=== PATIENT | female | born 1975 | race Two or more races ===

== ENCOUNTER 2017-11-05 17:30 | Outpatient (AMBR) | payer MEDICAID, SELFPAY ==
--- NOTE | 2017-11-03 19:13 | PT.ODAYNRPT ---
PT Outpatient Daily Note Date of Service: November 03, 2017 OP Daily Note Visit Reasons: knee pain Outpatient Physical Therapy Treatment Date: 11/03/17 Subjective: Ssx are unchanged from time of evaluation. 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
--- NOTE | 2017-11-05 18:25 | PT.ODAYNRPT ---
PT Outpatient Daily Note Date of Service: November 05, 2017 OP Daily Note Visit Reasons: knee pain Outpatient Physical Therapy Treatment Date: 11/05/17 Subjective: Ssx are unchanged from time of evaluation. 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
== END 2017-11-05 17:46 | disposition home or self-care (01) ==
PROVIDERS: PCP Family Medicine; Referring Provider Family Medicine; Visit Provider Family Medicine
DX: I10 Essential (primary) hypertension (principal)
CPT/HCPCS: 97110

== ENCOUNTER 2017-11-12 17:28 | Outpatient (AMBR) | payer MEDICAID, SELFPAY ==
--- NOTE | 2017-11-12 18:21 | PT.ODAYNRPT ---
PT Outpatient Daily Note Date of Service: November 12, 2017 OP Daily Note Visit Reasons: pain Outpatient Physical Therapy Treatment Date: 11/12/17 Subjective: Temporary relief from therapy visits. She is on her feet at work for most of the day Objective: See F/S for therex MT: STM to ITB and patella borders x7' with Graston Assessment: Good response to exercise and manual therapy to reduce B knee pain. Ssx return probably irritated by work duties. Plan: Continue per POC Length of Time (minutes) of Treatment: 30 Minutes Office Procedures PT Procedures PT Date of Service: 11/12/17 Therapeutic Exercise 30 minutes: Yes
== END 2017-12-07 23:59 | disposition home or self-care (01) ==
PROVIDERS: PCP Family Medicine; Referring Provider Family Medicine; Visit Provider Family Medicine
DX: I10 Essential (primary) hypertension (principal)
CPT/HCPCS: 97110

== ENCOUNTER 2018-05-21 14:50 | Outpatient (AMBR) | payer MEDICAID, SELFPAY ==
--- NOTE | 2018-05-21 15:23 | PT.OIERPT ---
PT OP Initial Eval Patient Information Pediatric or Adult Patient: Adult PT >13 Visit Reasons: knee pain Medical Diagnosis: bilateral knee OA Treatment Dx #1: bilateral knee pain Start of Care: 05/21/18 Date of Onset: 04/24/2018 Initial Assessment Subjective 42 y/o female who was referred to PT due to bilateral knee pain. Patient was complaining of bilateral knee pain L knee > R knee pain. Patient works in the [employer] house of [employer] and she is able to sit and stand up as needed. She usually will carry ~3-5 gallon of [place]. Patient states it hurts her when she is walking and cannot stand up for longer period of time or if she is doing sit to stand. Objective (+) Crepitus on Bilateral knee during flexion and extension PS on L knee 8/10 and R knee 5/10 L quads 4/5 R quads 4/5 TUG test 12.56secs gait Assessment: Patient demonstrates wnl toe clearance. (-) antalgic gait noted. Visual assessment: Bilateral anterior knee mild edema Assessment Patient will benefit for Physical therapy for strengthening ex on BLE with modalities to manage the pain. Patient were advised that we will attempt 5-10 treatment session and if there are no significant gains we will refer her back to her PCP. Patient was also complaining of back pain. Patient were advised that if the back persist to let her PCP know and PCP will decide if she will get a refferal for Physical therapy. Short Term and Ostomy Nurse Goals 1. Increase ms strength on B quads to 5/5 to be able to do STS without difficulty. 2. To decrease pain on BLE to 2/10 to be able to do her ADL's without limitations. Treatment Plan Thera ex Manual tx Estim Frequency and Duration 2x/wk x 6 weeks Certification Dates: 05/21/2018 to 08/21/2018
--- NOTE | 2018-05-21 15:26 | PTNOTE_ITS ---
PT OP Initial Eval Patient Information Pediatric or Adult Patient: Adult PT >13 Visit Reasons: knee pain Medical Diagnosis: bilateral knee OA Treatment Dx #1: bilateral knee pain Start of Care: 05/21/18 Date of Onset: 04/24/2018 Initial Assessment Subjective 42 y/o female who was referred to PT due to bilateral knee pain. Patient was complaining of bilateral knee pain L knee > R knee pain. Patient works in the [email or web address] house of [employer] and she is able to sit and stand up as needed. She usually will carry ~3-5 gallon of [employer]. Patient states it hurts her when she is walking and cannot stand up for longer period of time or if she is doing sit to stand. Objective (+) Crepitus on Bilateral knee during flexion and extension PS on L knee 8/10 and R knee 5/10 L quads 4/5 R quads 4/5 TUG test 12.56secs gait Assessment: Patient demonstrates wnl toe clearance. (-) antalgic gait noted. Visual assessment: Bilateral anterior knee mild edema Assessment Patient will benefit for Physical therapy for strengthening ex on BLE with modalities to manage the pain. Patient were advised that we will attempt 5-10 treatment session and if there are no significant gains we will refer her back to her PCP. Patient was also complaining of back pain. Patient were advised that if the back persist to let her PCP know and PCP will decide if she will get a refferal for Physical therapy. Short Term and Search Lead Goals 1. Increase ms strength on B quads to 5/5 to be able to do STS without difficulty. 2. To decrease pain on BLE to 2/10 to be able to do her ADL's without limitations. Treatment Plan Thera ex Manual tx Estim Frequency and Duration 2x/wk x 6 weeks Certification Dates: 05/21/2018 to 08/21/2018
== END 2018-06-07 23:59 | disposition home or self-care (01) ==
PROVIDERS: PCP Family Medicine; Referring Provider Family Medicine; Visit Provider Family Medicine
DX: M17.0 Bilateral primary osteoarthritis of knee (principal); M25.561 Pain in right knee; M25.562 Pain in left knee; I10 Essential (primary) hypertension
CPT/HCPCS: 97162

== ENCOUNTER → 2024-02-12 | Outpatient (CLI) | payer MEDICAID, SELFPAY ==
--- NOTE | 2024-02-12 11:30 | XR_ITS ---
Examination: Breast ultrasound complete, bilateral Date and time of exam: February 12, 2024 12:03 PM INDICATIONS: Mammogram December 15, 2023 multiple bilateral circumscribed nodules, also right inner breast pain beginning December 15, 2023 Technique: Real-time grayscale ultrasonographic imaging bilateral breasts, including all 4 quadrants as well as nipple retroareolar and axillary regions. Findings: No cystic or solid mass involving the right breast 1:00 cyst left breast 10 x 8 mm No solid nodules Dilated retroareolar ducts bilaterally IMPRESSION: BI-RADS Category 2: Benign findings
== END | disposition home or self-care (01) ==
LOC: CDIM 11:20
PROVIDERS: Referring Provider Physician Assistant; Visit Provider Physician Assistant
DX: N60.02 Solitary cyst of left breast (principal)
CPT/HCPCS: 76641

== ENCOUNTER 2024-09-09 10:54 | Emergency (ER) | payer MEDICAID, SELFPAY ==
[2024-09-09 11:02] VITALS: BP 142/89; PULSE 88; RESP 17; TEMP 37.2; O2SAT 96
--- NOTE | 2024-09-09 11:15 | EDNOTE_ITS ---
ED Female Urogenital RME/HPI General Chief complaint: Urogenital-Female Stated complaint: PAINFUL URINATION FOR 5 DAYS Time Seen by Provider: 09/09/24 10:58 Source: patient Arrival date/time: 09/09/24 10:54 49-year-old female with no known medical history presents to the emergency room with a chief complaint of dysuria, lower abdominal cramping x 5 days. Mode of arrival: ambulatory Limitations: no limitations Related Data Previous Rx's ?Medication ?Instructions ?Recorded naproxen 500 mg tablet 500 mg PO Q12H #40 tabs 09/08 05/25 Allergies Allergy/AdvReac Type Severity Reaction Status Date / Time No Known Allergies Allergy Verified 09/09/24 10:57 Review of Systems Review of Systems Systems Reviewed: All systems reviewed, normal except as documented Constitutional Constitutional: Reports system reviewed and no additional complaints, except as documented, Denies fatigue, Denies fever(s), Denies headache(s) and Denies weakness Eyes Eyes: Reports system reviewed and no additional complaints, except as documented, Denies blurry vision and Denies change in vision ENT Ears, Nose, Mouth, and Throat: Reports system reviewed and no additional complaints, except as documented, Denies otalgia, Denies headache(s), Denies nasal congestion, Denies throat swelling and Denies vertigo Cardiovascular Cardiovascular: Reports system reviewed and no additional complaints, except as documented, Denies chest pain, Denies dyspnea and Denies dyspnea on exertion Respiratory Respiratory: Reports system reviewed and no additional complaints, except as documented, Denies chest congestion, Denies cough, Denies dyspnea, Denies dyspnea on exertion and Denies wheezing Gastrointestinal Gastrointestinal: Reports system reviewed and no additional complaints, except as documented, Reports abdominal pain, Reports cramping, Reports nausea and Denies vomiting Genitourinary Genitourinary: Reports system reviewed and no additional complaints, except as documented and Reports dysuria Musculoskeletal Musculoskeletal: Reports system reviewed and no additional complaints, except as documented and Denies back pain Integumentary/Breasts Skin/Breast: Reports system reviewed and no additional complaints, except as documented and Denies wounds Neurologic Neurologic: Reports system reviewed and no additional complaints, except as documented, Denies confusion, Denies headache(s), Denies lack of coordination, Denies vertigo and Denies weakness Psychiatric Psychiatric: Reports system reviewed and no additional complaints, except as documented, Denies anxiety, Denies confusion, Denies depression, Denies paranoia, Denies suicidal ideation and Denies tactile hallucinations Endocrine Endocrine: Reports system reviewed and no additional complaints, except as documented and Denies fatigue Hematologic/Lymphatic Hematologic/Lymphatic: Reports system reviewed and no additional complaints, except as documented and Denies lymphadenopathy Allergic/Immunologic Allergic/Immunologic: Reports system reviewed and no additional complaints, except as documented, Denies throat swelling, Denies urticaria and Denies wheezing ED Exam General Limitations: Present no limitations Course Quality Measures none Orders Category Date Time Status CBC Stat Lab 09/09/24 11:42 Completed CMP [Comprehensive Metabolic Panel] Stat Lab 09/09/24 11:42 Completed HCG Qualitative,Urine Stat Lab 09/09/24 11:31 Completed Lipase Stat Lab 09/09/24 11:42 Completed UA [Urinalysis] Stat Lab 09/09/24 11:31 Completed Urine Culture Stat Lab 09/09/24 11:31 Received Vital Signs Vital signs: Vital Signs Temperature 99.0 F 09/09/24 11:02 Pulse Rate 88 09/09/24 11:02 Respiratory Rate 17 09/09/24 11:02 Blood Pressure 142/89 H 09/09/24 11:02 Pulse Oximetry (%) 96 09/09/24 11:02 Oxygen Delivery Method Room Air 09/09/24 11:02 O2 saturation 96% within normal limits Urogenital - Female MDM Narrative MDM Narrative:: 49-year-old female with no known medical history presents to the emergency room with a chief complaint of dysuria, lower abdominal cramping x 5 days. Patient is hemodynamically stable and in no apparent distress. She is afebrile not tachycardic not tachypneic Physical examination shows a soft nontender abdomen. The patient has some mild lower abdominal cramping in the pelvic area. The patient does not have any right lower quadrant abdominal tenderness there is no tenderness to McBurney's point there is no right upper quadrant abdominal tenderness and negative West sign CBC CMP were within normal limits. Urinalysis was within normal limits Patient was discharged and educated to follow-up with primary care provider in the next 24 to 48 hours and return to the emergency room for any evidence of worsening signs or symptoms Patient data External records reviewed:: [facility] previous records Clinical information provided by:: patient Social determinants that could affect healthcare access:: none Patient has the following chronic illnesses:: No chronic illness How is presenting disease/condition affected by chronic disease/condition?: no chronic disease Evaluation data The following diagnostics were reviewed and interpreted by me:: lab results and radiology exam(s) Lab and/or radiology exams considered but not ordered:: Labs and radiology exams considered in order Interpretation Summary: N/A Medications / Prescriptions Medications or Prescriptions considered but not ordered:: Medication given Medication administrations:: Medication given Consultations Consultation(s) initiated? (list below): No Diagnosis Urogenital Female Differential Diagnosis: urinary tract infection, bacterial vaginosis, cystitis and other (Gastroenteritis/dysuria) Most likely diagnosis given after review of the tests above:: Dysuria Admission Indicated Admission indicated?: not indicated Admission Request Was there a request for admission?: No Disposition Plan Disposition Plan: Discharge Discharge Attestation Discharge Attestation: The patient and all family members were given an opportunity to ask questions and understood the discharge instructions. Discharge instructions specifically effects, indications for sooner follow up or return to the emergency department, and the expected course of current diagnosis. Patient condition: Stable Discharge Plan Plan Patient Disposition: HOME (Self Care) Discharge Disposition comment: Stable Prescriptions/Referrals Prescriptions/Med Rec: No Action naproxen 500 mg tablet 500 mg PO Q12H Qty: 40 0RF Rx Instructions: administer with food or milk Referrals: Shauna Aguayo PA-C [Primary Care Provider] - In 1 week Problem List Clinical Impression: Dysuria Patient/Caregiver Discharge Instructions Education Materials: ED Dysuria, Uncertain Cause (Adult) Additional Instructions: Por favor, consulte con joe m?dico de cabecera en las pr?ximas 24 a 48 horas. Joe an?lisis de katelyn fue negativo para cualquier hallazgo chiquita. Joe an?lisis de orina fue negativo para cualquier infecci?n del tracto urinario. Si hay cualquier evidencia de empeoramiento de los signos o s?ntomas, regrese a urgencias inmediatamente. Print Language: Greek Stand Alone Forms: Nancy Award Info., Patient Portal Info Letter PA/RAH Supervising Physician GOGO/RAH Supervising Physician: Dr. Walker
[2024-09-09 11:47] LABS: Collection Type, Urine Clean Catch
[2024-09-09 12:04] LABS: HCG Qualitative,Urine Negative
[2024-09-09 12:06] LABS: Bilirubin,Urine Negative (Negative); Blood,Urine Negative (Negative); Clarity,Urine Clear (Clear/Hazy); Color,Urine Colorless (Lt Yel-Yel); Glucose, Urine Negative (Negative); Ketones,Urine Negative (Negative); Leukocyte Esterase,Urine Negative (Negative); Nitrite,Urine Negative (Negative); PH,Urine 6.5 (5.0-7.0); Protein,Urine Negative (Neg - Trace); RBC,Urine 1 /hpf (0-3); Specific Gravity,Urine 1.005 (1.001-1.035); Squamous Epithelial Cell,Urine 2 /hpf (0-5); Urobilinogen,Urine Negative mg/dL (0.0-1.0); WBC,Urine 1 /hpf (0-5)
[2024-09-09 12:08] LABS: Basophils # (Auto) 0.0 Thou/mm3 (0.0-0.2); Basophils % (Auto) 0 % (0-2.5); Eosinophils # (Auto) 0.1 Thou/mm3 (0.0-0.5); Eosinophils % (Auto) 1 % (0-10); Hematocrit 43.0 % (36.0-46.0); Hemoglobin 14.6 g/dL (12.0-16.0); Immature Granulocytes Auto 0.01 Thou/mm3 (0.00-0.00); Lymphocytes # (Auto) 1.3 Thou/mm3 (1.0-4.8); Lymphocytes % (Auto) 25 % (10-50); Mean Corpuscular HGB Conc 34.0 g/dl (31.0-37.0); Mean Corpuscular Hemoglobin 28.5 pg (25.0-35.0); Mean Corpuscular Volume 84 fL (80-100); Monocytes # (Auto) 0.4 Thou/mm3 (0.0-0.8); Monocytes % (Auto) 8 % (0-12); Neutrophils # (Auto) 3.4 Thou/mm3 (1.8-7.7); Neutrophils % (Auto) 66 % (37-80); Nucleated Red Blood Cell # 0.00 Thou/mm3 (0.00-0.00); Nucleated Red Blood Cell % 0 /100 WBC (0); Platelet Count 163 Thou/mm3 (140-440); RDW Standard Deviation 37.7 fL (36.4-46.3); Red Blood Count 5.12 Miln/mm3 (4.00-5.20); White Blood Count 5.2 Thou/mm3 (3.6-11.0)
[2024-09-09 12:45] LABS: Alanine Aminotransferase 36 U/L (10-49); Albumin, Serum 4.7 gm/dL (3.5-5.0); Albumin/Globulin Ratio 1.3 (1.2-2.2); Alkaline Phosphatase 69 U/L (46-116); Anion Gap 8 (7-16); Aspartate Amino Transferase 30 U/L (0-34); BUN/Creatinine Ratio 16 Ratio (12-20); Bilirubin,Total 0.8 mg/dL (0.3-1.2); Blood Urea Nitrogen 13 mg/dL (9-23); Calcium 10.1 mg/dL (8.3-10.6); Calcium (Corrected) 10.1 mg/dL (8.5-10.1); Carbon Dioxide 26.5 mMol/L (20.0-31.0); Chloride 107 mMol/L (98-107); Creatinine (Component) 0.8 mg/dL (0.6-1.3); Estimated Creatinine Clearance 73.4 mL/min (>60); Globulin 3.5 gm/dL (2.3-3.5); Glucose 114 mg/dL (74-106); Lipase 32 U/L (12-53); Osmolality,Calculated 282 (275-295); Potassium 4.1 mMol/L (3.4-5.1); Sodium 141 mMol/L (136-145); Total Protein 8.2 gm/dL (5.7-8.2); eGFR > 60 See Note
[2024-09-09 13:11] VITALS: BP 132/86; PULSE 81; RESP 16; TEMP 37.1; O2SAT 96
== END 2024-09-09 13:11 | disposition home or self-care (01) ==
PROVIDERS: Nurse Practitioner Family; Emergency Provider Family Medicine; PCP Physician Assistant
DX: R30.0 Dysuria (principal)
CPT/HCPCS: 36415; 80053; 81001; 81025; 83690; 85025; 87077; 87086; 87186; 99283

== ENCOUNTER → 2024-12-09 | Outpatient (CLI) | payer MEDICAID, SELFPAY ==
--- NOTE | 2024-12-09 08:45 | XR_ITS ---
Examination: Abdomen sonogram, complete Date and time of exam: December 09, 2024, 0936 hours INDICATIONS: Right upper abdominal pain beginning 2 weeks ago. Technique: Multiple real-time grayscale transabdominal sonographic images of the abdomen have been obtained. Findings: Absent gallbladder. Normal common bile duct 0.3 cm Pancreatic head 2.1 cm Aorta not enlarged. Liver 13.8 cm fatty infiltration Normal hepatopedal portal venous flow Patent IVC Right kidney 9.2 cm cortex 1.8 cm Left kidney 9.5 cm cortex 2.0 cm Moderate renal scar formation Spleen 9.2 cm Impression: Normal common bile duct Moderate renal parenchymal scar formation, no hydronephrosis
== END | disposition home or self-care (01) ==
PROVIDERS: PCP Physician Assistant; Referring Provider Physician Assistant; Visit Provider Physician Assistant
DX: N28.89 Other specified disorders of kidney and ureter (principal)
CPT/HCPCS: 76700

== ENCOUNTER → 2025-02-23 | Outpatient (CLI) | payer MEDICAID, SELFPAY ==
--- NOTE | 2025-02-23 08:45 | XR_ITS ---
Examination: Screening digital mammography, bilateral Computer aided detection 3-D breast Tomosynthesis, bilateral Date and time of exam: February 23, 2025, 0902 hours, compared to mammograms dating to June 28, 2016 Indication: Screening Technique: Nonmagnified MLO, CC views of the breasts to been obtained, reconstructed from 3-D Tomosynthesis images. R2 computer aided detection program utilized for evaluation of suspicious masses and/or abnormal calcifications. 3-D Tomosynthesis images obtained. Findings: Scattered areas of fibroglandular density Stable subcentimeter bilateral circumscribed nodules No interval suspicious masses Impression: BI-RADS category II: Benign Findings. Recommend 1 year follow-up mammogram.
== END | disposition home or self-care (01) ==
LOC: CDIM 08:44
PROVIDERS: Referring Provider Physician Assistant; Visit Provider Physician Assistant
DX: Z12.31 Encounter for screening mammogram for malignant neoplasm of breast (principal); R92.323 Mammographic fibroglandular density, bilateral breasts
CPT/HCPCS: 77063; 77067

== ENCOUNTER → 2025-03-07 | Outpatient (CLI) | payer MEDICAID, SELFPAY ==
--- NOTE | 2025-03-07 09:15 | XR_ITS ---
EXAMINATION: Ultrasound liver elastography Date and time: March 07, 2025, 0944 hours INDICATIONS: History fatty liver TECHNIQUE AND FINDINGS: Grayscale sonographic images of the liver Liver measures 14.7 cm Normal portal venous flow Patent hepatic veins Liver tissue stiffness average 1.9 m/s, mild to moderate liver fibrosis IMPRESSION: Mild to moderate liver fibrosis
== END | disposition home or self-care (01) ==
PROVIDERS: PCP Physician Assistant; Referring Provider Physician Assistant; Visit Provider Physician Assistant
DX: K74.00 Hepatic fibrosis, unspecified (principal)
CPT/HCPCS: 76981